=== PATIENT | female | born 1990 | race Caucasian/White ===

== ENCOUNTER 2017-11-20 13:06 | Emergency (ER) | payer OTHER ==
[~2017-11-20] VITALS: Ht 157.5 cm; Wt 70.3 kg
[~2017-11-20 13:06] MED LIST: ACET325 PO; Bactrim Ds Tab1 EACH PO; CEPH500 PO; CODACE30 PO; CYCL10 PO; FERR160 PO; HYDACE10B PO; HYDACE5 PO; HYDR1TAB94 PO; IBUP600 PO; IBUP800 PO; Keflex500 MG PO; LORA1 PO; MULVITMINE PO; NITR100CA PO
[2017-11-20 14:30] LABS: Source, Urine Clean Catch
[2017-11-20 14:32] LABS: Appearance, Urine Hazy (Clear); Bilirubin, Urine Neg (Neg); Blood, Urine 4+ (Neg); Color, Urine Amber (P-Yellow); Glucose Qualitative, Urine Neg (Neg); Ketones, Urine Neg (Neg); Leukocyte Esterase, Urine 2+ (Neg); Nitrite, Urine Pos (Neg); Protein, Urine 3+ (Neg); Urobilinogen, Urine 2+ (Normal)
[2017-11-20 14:42] LABS: Red Blood Cells, Urine 25-50 /hpf (0-2); White Blood Cells, Urine TNTC /hpf (0-5)
[2017-11-20 14:43] LABS: Bacteria Many /hpf; Squamous Epithelial Cells Few /hpf (Few)
[2017-11-20 15:13] LABS: BASOPHILS ABSOLUTE AUTO 0.05 K/mm3 (0.00-0.23); BASOPHILS PERCENT AUTO 0 % (0-2); EOSINOPHILS ABSOLUTE AUTO 0.17 K/mm3 (0.00-0.68); EOSINOPHILS PERCENT AUTO 1 % (0-6); Hematocrit 36.9 % (33.0-51.0); Hemoglobin 12.2 g/dL (11.5-16.0); IMMATURE GRAN ABSOLUTE AUTO 0.06 K/mm3 (0.00-0.10); IMMATURE GRAN PERCENT AUTO 1 % (0-1); LYMPHOCYTES ABSOLUTE AUTO 1.18 K/mm3 (0.84-5.20); LYMPHOCYTES PERCENT AUTO 10 % (21-46); MONOCYTES ABSOLUTE AUTO 1.16 K/mm3 (0.16-1.47); MONOCYTES PERCENT AUTO 9 % (4-13); Mean Corpuscular HGB 27.7 pg (26.0-34.0); Mean Corpuscular HGB Conc 33.1 g/dL (31.5-36.5); Mean Corpuscular Volume 84 fL (80-100); Mean Platelet Volume 9.2 fL (9.1-12.4); NEUTROPHILS ABSOLUTE AUTO 9.79 K/mm3 (1.96-9.15); NEUTROPHILS PERCENT AUTO 79 % (41-73); Platelet Count 348 K/mm3 (150-400); RDW Coefficient Variation 13.1 % (11.7-14.2); Red Blood Cell Count 4.41 M/mm3 (3.80-5.20); White Blood Cell Count 12.41 K/mm3 (4.00-11.30)
[2017-11-20 15:23] LABS: Alanine Aminotransfer (ALT/SGP 117 U/L (12-78); Albumin, Blood 3.4 g/dL (3.4-5.0); Albumin/Globulin Ratio 0.8 (0.8-1.8); Alk Phos 93 U/L (50-136); Anion Gap 8 mmol/L (6-16); Aspartate Aminotrans (AST/SGOT 60 U/L (12-37); Bilirubin, Total 0.4 mg/dL (0.1-1.0); Blood Urea Nitrogen 9 mg/dL (8-24); Bun/Creatinine Ratio 15.4 (12.0-20.0); CO2, Blood 27 mmol/L (21-32); Calcium, Blood 8.8 mg/dL (8.5-10.1); Chloride, Blood 102 mmol/L (98-108); Creatinine, Blood 0.58 mg/dL (0.40-1.00); Globulin, Blood 4.2 g/dL (2.2-4.0); Glomerular Filtration Rate >60 (60-); Glucose, Blood 102 mg/dL (70-99); Potassium, Blood 3.1 mmol/L (3.5-5.5); Sodium, Blood 137 mmol/L (136-145); Total Protein, Blood 7.6 g/dL (6.4-8.2)
[2017-11-20] MEDS ORDERED: Cipro500 MG PO (16:05)
== END 2017-11-20 16:56 | disposition home or self-care (01) ==
LOC: ER 13:06
PROVIDERS: Physician Assistant
DX: N12 Tubulo-interstitial nephritis, not specified as acute or chronic (principal); F17.200 Nicotine dependence, unspecified, uncomplicated; Z90.49 Acquired absence of other specified parts of digestive tract
CPT/HCPCS: 36415; 74176; 80053; 81001; 81025; 85025; 87077; 87086; 87186; 96361; 96365; 96375; 99284; J0696; J1885; J7030

== ENCOUNTER 2017-12-06 08:15 | Emergency (ER) | payer OTHER ==
[~2017-12-06] VITALS: Ht 157.5 cm; Wt 68.0 kg
[~2017-12-06 08:15] MED LIST changes: +Cipro500 MG PO
[2017-12-06] MEDS ORDERED: Ultram50 MG PO (08:50)
[2017-12-06] MEDS ORDERED: Cleocin HCl300 MG PO (08:50)
== END 2017-12-06 08:56 | disposition home or self-care (01) ==
LOC: ER 08:15
DX: K04.7 Periapical abscess without sinus (principal); D64.9 Anemia, unspecified; Z87.442 Personal history of urinary calculi; F17.210 Nicotine dependence, cigarettes, uncomplicated
CPT/HCPCS: 99283

== ENCOUNTER 2018-02-02 14:52 | Emergency (ER) | payer OTHER ==
[~2018-02-02] VITALS: Ht 157.5 cm; Wt 70.3 kg
[~2018-02-02 14:52] MED LIST changes: +Cleocin HCl300 MG PO; +Ultram50 MG PO
[2018-02-02] MEDS ORDERED: Cleocin HCl300 MG PO (15:43)
[2018-02-03] MEDS ORDERED: Cleocin HCl300 MG PO (10:31)
== END 2018-02-02 17:03 | disposition home or self-care (01) ==
LOC: ER 14:52
DX: K04.7 Periapical abscess without sinus (principal); L03.211 Cellulitis of face; D64.9 Anemia, unspecified; F17.210 Nicotine dependence, cigarettes, uncomplicated; Z79.2 Long term (current) use of antibiotics; Z87.442 Personal history of urinary calculi
CPT/HCPCS: 96365; 96376; 99283; J1100; J1885

== ENCOUNTER 2018-02-03 00:52 | Emergency (ER) | payer OTHER ==
[~2018-02-03] VITALS: Ht 157.5 cm; Wt 70.3 kg
[2018-02-03] MEDS ORDERED: Cleocin HCl300 MG PO (10:31)
== END 2018-02-03 02:06 | disposition home or self-care (01) ==
LOC: ER 00:52
DX: L03.211 Cellulitis of face (principal); F17.210 Nicotine dependence, cigarettes, uncomplicated

== ENCOUNTER 2018-02-03 10:04 | Emergency (ER) | payer OTHER ==
[~2018-02-03] VITALS: Ht 157.5 cm; Wt 70.3 kg
[2018-02-03] MEDS ORDERED: Cleocin HCl300 MG PO (10:31)
== END 2018-02-03 11:20 | disposition home or self-care (01) ==
LOC: ER 10:04
DX: L03.211 Cellulitis of face (principal); D64.9 Anemia, unspecified; F17.210 Nicotine dependence, cigarettes, uncomplicated; Z87.442 Personal history of urinary calculi
CPT/HCPCS: 96365; 99282

== ENCOUNTER 2018-03-09 00:45 | Emergency (ER) | payer MEDICAID ==
[~2018-03-09] VITALS: Ht 157.5 cm; Wt 70.3 kg
[2018-03-09] MEDS ORDERED: Cleocin HCl150 MG PO (01:51)
== END 2018-03-09 01:59 | disposition home or self-care (01) ==
LOC: ER 00:45
DX: L02.31 Cutaneous abscess of buttock (principal); F17.210 Nicotine dependence, cigarettes, uncomplicated; Z87.442 Personal history of urinary calculi
CPT/HCPCS: 99282

== ENCOUNTER 2018-03-24 03:48 | Emergency (ER) | payer MEDICAID ==
[~2018-03-24] VITALS: Ht 157.5 cm; Wt 68.0 kg
[~2018-03-24 03:48] MED LIST changes: +Cleocin HCl150 MG PO
[2018-03-24] MEDS ORDERED: IBUP400 PO (04:26)
[2018-03-24] MEDS ORDERED: Veetids 500500 MG PO (04:26)
[2018-03-24] MEDS ORDERED: HYDR1TAB94 PO (04:26)
== END 2018-03-24 04:40 | disposition home or self-care (01) ==
LOC: ER 03:48
DX: K04.01 Reversible pulpitis (principal); K02.9 Dental caries, unspecified; F17.210 Nicotine dependence, cigarettes, uncomplicated
CPT/HCPCS: 99283

== ENCOUNTER 2020-03-05 04:11 | Emergency (ER) | payer OTHER ==
[~2020-03-05] VITALS: Ht 162.6 cm; Wt 71.2 kg
[~2020-03-05 04:11] MED LIST changes: +IBUP400 PO; +Veetids 500500 MG PO
[2020-03-05] MEDS ORDERED: METPRE4DP PO (04:39)
[2020-03-05] MEDS ORDERED: IBUP600 PO (04:39)
== END 2020-03-05 04:57 | disposition home or self-care (01) ==
LOC: ER 04:11
DX: M54.12 Radiculopathy, cervical region (principal); F17.210 Nicotine dependence, cigarettes, uncomplicated
CPT/HCPCS: 99283; A9270-GY; J1100

== ENCOUNTER 2020-05-17 19:18 | Emergency (ER) | payer OTHER ==
[~2020-05-17] VITALS: Ht 157.5 cm; Wt 76.7 kg
[~2020-05-17 19:18] MED LIST changes: +METPRE4DP PO
[2020-05-17] MEDS ORDERED: AMOCLA875 PO (19:52)
[2020-05-19] MEDS ORDERED: CLIN300 PO (08:29)
[2020-05-19] MEDS ORDERED: PRED20 PO (08:29)
== END 2020-05-17 20:12 | disposition home or self-care (01) ==
LOC: ER 19:18
DX: K04.7 Periapical abscess without sinus (principal); K02.9 Dental caries, unspecified; F17.210 Nicotine dependence, cigarettes, uncomplicated
CPT/HCPCS: 99283

== ENCOUNTER 2020-10-02 17:12 | Emergency (ER) | payer OTHER ==
[~2020-10-02] VITALS: Ht 157.5 cm; Wt 79.4 kg
[~2020-10-02 17:12] MED LIST changes: +AMOCLA875 PO; +CLIN300 PO; +PRED20 PO
[2020-10-02 17:38] LABS: BASOPHILS ABSOLUTE AUTO 0.05 K/mm3 (0.00-0.23); BASOPHILS PERCENT AUTO 1 % (0-2); EOSINOPHILS ABSOLUTE AUTO 0.18 K/mm3 (0.00-0.68); EOSINOPHILS PERCENT AUTO 2 % (0-6); Hematocrit 39.3 % (33.0-51.0); Hemoglobin 12.8 g/dL (11.5-16.0); IMMATURE GRAN ABSOLUTE AUTO 0.03 K/mm3 (0.00-0.10); IMMATURE GRAN PERCENT AUTO 0 % (0-1); LYMPHOCYTES ABSOLUTE AUTO 1.04 K/mm3 (0.84-5.20); LYMPHOCYTES PERCENT AUTO 10 % (21-46); MONOCYTES ABSOLUTE AUTO 0.96 K/mm3 (0.16-1.47); MONOCYTES PERCENT AUTO 10 % (4-13); Mean Corpuscular HGB 28.4 pg (26.0-34.0); Mean Corpuscular HGB Conc 32.6 g/dL (31.5-36.5); Mean Corpuscular Volume 87 fL (80-100); Mean Platelet Volume 8.8 fL (9.1-12.4); NEUTROPHILS ABSOLUTE AUTO 7.79 K/mm3 (1.96-9.15); NEUTROPHILS PERCENT AUTO 78 % (41-73); Platelet Count 354 K/mm3 (150-400); RDW Coefficient Variation 12.7 % (11.7-14.2); RDW Standard Deviation 40.7 fL (35.1-46.3); White Blood Cell Count 10.05 K/mm3 (4.00-11.30)
[2020-10-02 17:52] LABS: Alanine Aminotransfer (ALT/SGP 24 U/L (12-78); Albumin, Blood 3.7 g/dL (3.4-5.0); Albumin/Globulin Ratio 0.9 (0.8-1.8); Alk Phos 63 U/L (50-136); Anion Gap 7 mmol/L (6-16); Aspartate Aminotrans (AST/SGOT 16 U/L (12-37); Bilirubin, Total 0.6 mg/dL (0.1-1.0); Blood Urea Nitrogen 9 mg/dL (8-24); Bun/Creatinine Ratio 12.2 (12.0-20.0); CO2, Blood 25 mmol/L (21-32); Calcium, Blood 9.1 mg/dL (8.5-10.1); Chloride, Blood 105 mmol/L (98-108); Creatinine, Blood 0.74 mg/dL (0.40-1.00); Globulin, Blood 3.9 g/dL (2.2-4.0); Glomerular Filtration Rate >60 (60-); Glucose, Blood 89 mg/dL (70-99); Potassium, Blood 3.5 mmol/L (3.5-5.5); Sodium, Blood 137 mmol/L (136-145); Total Protein, Blood 7.6 g/dL (6.4-8.2)
[2020-10-02 18:54] LABS: Source, Urine Clean Catch
[2020-10-02 19:01] LABS: Appearance, Urine Hazy (Clear); Bilirubin, Urine Neg (Neg); Blood, Urine 2+ (Neg); Color, Urine Yellow (P-Yellow); Glucose Qualitative, Urine Neg (Neg); Ketones, Urine Neg (Neg); Leukocyte Esterase, Urine 2+ (Neg); Nitrite, Urine Pos (Neg); Protein, Urine 1+ (Neg); Specific Gravity, Urine 1.015 (1.003-1.022); Urobilinogen, Urine NORM (Normal); pH, Urine 6.5 (5.0-8.0)
[2020-10-02 19:14] LABS: White Blood Cells, Urine 25-50 /hpf (0-5)
[2020-10-02 19:15] LABS: Bacteria Many /hpf; Red Blood Cells, Urine 0-2 /hpf (0-2); Squamous Epithelial Cells Few /hpf (Few)
[2020-10-02] MEDS ORDERED: CEPH500 PO (19:35)
[2020-10-02] MEDS ORDERED: ONDA4ODT MM (19:35)
== END 2020-10-02 21:00 | disposition home or self-care (01) ==
LOC: ER 17:12
PROVIDERS: Physician Assistant
DX: N12 Tubulo-interstitial nephritis, not specified as acute or chronic (principal); F17.210 Nicotine dependence, cigarettes, uncomplicated
CPT/HCPCS: 36415; 80053; 81001; 81025; 85025; 87077; 87086; 87186; 96365; 96375; 99284-25; A9270; J0696; J1885; J2405; J3010; J7030

== ENCOUNTER 2021-08-09 23:12 | Emergency (ER) | payer OTHER ==
[~2021-08-09] VITALS: Ht 160 cm; Wt 74.8 kg
[~2021-08-09 23:12] MED LIST changes: +ONDA4ODT MM
[2021-08-09 23:43] LABS: BASOPHILS ABSOLUTE AUTO 0.03 K/mm3 (0.00-0.23); BASOPHILS PERCENT AUTO 1 % (0-2); EOSINOPHILS ABSOLUTE AUTO 0.15 K/mm3 (0.00-0.68); EOSINOPHILS PERCENT AUTO 4 % (0-6); Hematocrit 37.6 % (33.0-51.0); Hemoglobin 12.7 g/dL (11.5-16.0); IMMATURE GRAN ABSOLUTE AUTO 0.01 K/mm3 (0.00-0.10); IMMATURE GRAN PERCENT AUTO 0 % (0-1); LYMPHOCYTES ABSOLUTE AUTO 1.43 K/mm3 (0.84-5.20); LYMPHOCYTES PERCENT AUTO 36 % (21-46); MONOCYTES ABSOLUTE AUTO 0.38 K/mm3 (0.16-1.47); MONOCYTES PERCENT AUTO 10 % (4-13); Mean Corpuscular HGB 28.9 pg (26.0-34.0); Mean Corpuscular HGB Conc 33.8 g/dL (31.5-36.5); Mean Corpuscular Volume 86 fL (80-100); Mean Platelet Volume 8.9 fL (9.1-12.4); NEUTROPHILS ABSOLUTE AUTO 1.96 K/mm3 (1.96-9.15); NEUTROPHILS PERCENT AUTO 49 % (41-73); Platelet Count 318 K/mm3 (150-400); RDW Coefficient Variation 12.7 % (11.7-14.2); RDW Standard Deviation 39.9 fL (35.1-46.3); Red Blood Cell Count 4.39 M/mm3 (3.80-5.20); White Blood Cell Count 3.96 K/mm3 (4.00-11.30)
[2021-08-10 00:04] LABS: Alanine Aminotransfer (ALT/SGP 48 U/L (12-78); Albumin, Blood 3.8 g/dL (3.4-5.0); Alk Phos 49 U/L (50-136); Anion Gap 3 mmol/L (6-16); Aspartate Aminotrans (AST/SGOT 33 U/L (12-37); Bilirubin, Total 0.3 mg/dL (0.1-1.0); Blood Urea Nitrogen 10 mg/dL (8-24); Bun/Creatinine Ratio 11.9 (12.0-20.0); CO2, Blood 27 mmol/L (21-32); Calcium, Blood 8.1 mg/dL (8.5-10.1); Chloride, Blood 110 mmol/L (98-108); Creatinine, Blood 0.84 mg/dL (0.40-1.00); Globulin, Blood 3.9 g/dL (2.2-4.0); Glomerular Filtration Rate >60 (60-); Glucose, Blood 82 mg/dL (70-99); Potassium, Blood 3.1 mmol/L (3.5-5.5); Sodium, Blood 140 mmol/L (136-145); Total Protein, Blood 7.7 g/dL (6.4-8.2)
[2021-08-10] MEDS ORDERED: TIVICAY50 MG PO (01:31)
[2021-08-10] MEDS ORDERED: TRUVADA 200 MG1 EACH (01:32)
== END 2021-08-10 05:00 | disposition home or self-care (01) ==
LOC: ER 23:12
PROVIDERS: Student in an Organized Health Care Education/Training Program
DX: U07.1 COVID-19 (principal); N93.9 Abnormal uterine and vaginal bleeding, unspecified; E87.6 Hypokalemia; D64.9 Anemia, unspecified; F17.210 Nicotine dependence, cigarettes, uncomplicated; Z79.899 Other long term (current) drug therapy; Z87.442 Personal history of urinary calculi
CPT/HCPCS: 36415; 80053; 84703; 85025

== ENCOUNTER 2022-04-12 07:55 | Emergency (ER) | payer OTHER ==
[~2022-04-12] VITALS: Ht 157.5 cm; Wt 77.1 kg
[~2022-04-12 07:55] MED LIST changes: +TIVICAY50 MG PO; +TRUVADA 200 MG1 EACH
[2022-04-12] MEDS ORDERED: Cleocin HCl300 MG PO (08:38)
[2022-04-12] MEDS ORDERED: IBU800 MG PO (08:38)
[2022-04-12] MEDS ORDERED: TRAM50 PO (08:38)
== END 2022-04-12 08:50 | disposition home or self-care (01) ==
LOC: ER 07:55
DX: K04.7 Periapical abscess without sinus (principal); F17.210 Nicotine dependence, cigarettes, uncomplicated
CPT/HCPCS: 99282

== ENCOUNTER 2022-06-20 18:21 | Emergency (ER) | payer OTHER ==
[~2022-06-20] VITALS: Ht 157.5 cm; Wt 72.6 kg
[~2022-06-20 18:21] MED LIST changes: +IBU800 MG PO; +TRAM50 PO
[2022-06-20] MEDS ORDERED: Veetids 500500 MG PO (19:31)
[2022-06-20 19:32] LABS: Influenza A, PCR NEGATIVE (NEGATIVE); Influenza B, PCR NEGATIVE (NEGATIVE); Resp Syncytial Virus, PCR NEGATIVE (NEGATIVE); SARS-Cov-2 (COVID-19) PCR, MMC NEGATIVE (NEGATIVE)
== END 2022-06-20 19:49 | disposition home or self-care (01) ==
LOC: ER 18:21
PROVIDERS: Emergency Medicine
DX: J02.0 Streptococcal pharyngitis (principal); F17.210 Nicotine dependence, cigarettes, uncomplicated; Z79.899 Other long term (current) drug therapy; Z20.822 Contact with and (suspected) exposure to COVID-19
CPT/HCPCS: 0241U; 87430; 99283; A9270

== ENCOUNTER 2024-07-17 14:10 | Emergency (ER) | payer OTHER ==
[~2024-07-17] VITALS: Ht 157.5 cm; Wt 77.1 kg
[2024-07-17 14:12] VITALS: BP 167/90
[2024-07-17] MEDS ORDERED: NS 1,000 ML IV SCH (16:20)
[2024-07-17] MEDS ORDERED: Albuterol 2.5 MG/3 ML VIAL INH SCH (16:20)
== END 2024-07-17 18:27 | disposition home or self-care (01) ==
LOC: ER 14:10
DX: J20.9 Acute bronchitis, unspecified (principal); F17.210 Nicotine dependence, cigarettes, uncomplicated
CPT/HCPCS: 71046; 94644; 94664; 99284-25; J7030

== ENCOUNTER 2024-10-11 20:01 | Emergency (ER) | payer OTHER ==
[~2024-10-11] VITALS: Ht 157.5 cm; Wt 72.6 kg
[2024-10-11 20:04] VITALS: BP 138/93
[2024-10-11] MEDS ORDERED: Ibuprofen 400 MG Tab PO ONE (20:10)
[2024-10-11 20:50] LABS: CORONAVIRUS COVID-19 AG Negative (NEGATIVE); INFLUENZA A AG Positive (NEGATIVE); INFLUENZA B AG Negative (NEGATIVE)
[2024-10-11] MEDS ORDERED: Albuterol 2.5 MG/3 ML VIAL INH SCH (22:30)
== END 2024-10-12 00:03 | disposition home or self-care (01) ==
LOC: ER 20:01
PROVIDERS: Student in an Organized Health Care Education/Training Program
DX: J11.1 Influenza due to unidentified influenza virus with other respiratory manifestations (principal)
CPT/HCPCS: 71046; 87428-QW; 99283-25

== ENCOUNTER 2025-07-11 17:33 | Emergency (ER) | payer OTHER ==
[~2025-07-11] VITALS: Ht 157.5 cm; Wt 74.8 kg
[2025-07-11] MEDS ORDERED: Ketorolac Tromethamine 15mg Vial IV ONE (21:35)
[2025-07-11 23:53] VITALS: BP 132/99
== END 2025-07-11 23:56 | disposition home or self-care (01) ==
LOC: ER 17:33
DX: S20.213A Contusion of bilateral front wall of thorax, initial encounter (principal); R10.11 Right upper quadrant pain; R10.12 Left upper quadrant pain; V29.99XA Rider (driver) (passenger) of other motorcycle injured in unspecified traffic accident, initial encounter; F17.210 Nicotine dependence, cigarettes, uncomplicated
CPT/HCPCS: 71046; 74177; 96374; 99284-25; J1885; Q9967

== ENCOUNTER 2025-08-21 14:12 | Emergency (ER) | payer OTHER ==
[~2025-08-21] VITALS: Ht 157.5 cm; Wt 77.1 kg
[2025-08-21 14:31] VITALS: BP 159/109
[2025-08-21] MEDS ORDERED: CEPH500 PO (14:34)
[2025-08-21] MEDS ORDERED: BACTRIM DS TAB1 EAC1 PO (14:34)
== END 2025-08-21 14:35 | disposition home or self-care (01) ==
LOC: ER 14:12
DX: L03.211 Cellulitis of face (principal); F17.210 Nicotine dependence, cigarettes, uncomplicated
CPT/HCPCS: 99283

== ENCOUNTER → 2025-10-19 | Outpatient (CLI) | payer OTHER ==
[~2025-10-19] MED LIST changes: +BACTRIM DS TAB1 EAC1 PO
[2025-10-19 18:46] LABS: Candida Group, PCR NOT DETECTED (NOT DETECT); Candida glabrata-krusei, PCR NOT DETECTED (NOT DETECT)
[2025-10-19 19:07] LABS: Bacterial Vaginosis PCR Positive (NEGATIVE)
== END | disposition home or self-care (01) ==
LOC: LAB SHORT 13:48 → LAB 13:48
DX: Z01.419 Encounter for gynecological examination (general) (routine) without abnormal findings (principal); Z11.59 Encounter for screening for other viral diseases
CPT/HCPCS: 81515; 87624; G0145